=== PATIENT | female | born 1945 | race Caucasian/White ===

== ENCOUNTER 2019-02-03 20:03 | Outpatient (CLI) | payer MEDICARE, OTHER | END 2019-02-04 07:15 | disposition home or self-care (01) | LOC: SLEEP 20:03 | DX: G47.33 Obstructive sleep apnea (adult) (pediatric) (principal) | CPT/HCPCS: 95811 ==

== ENCOUNTER 2019-07-04 17:49 | Outpatient (CLI) | payer MEDICARE | END 2019-07-05 07:15 | disposition home or self-care (01) | LOC: SLEEP 17:49 | PROVIDERS: ATTEND Physician Assistant | DX: G47.33 Obstructive sleep apnea (adult) (pediatric) (principal); I10 Essential (primary) hypertension; F39 Unspecified mood [affective] disorder | CPT/HCPCS: 95811 ==